=== PATIENT | female | born 1990 | race American Indian/Alaskan Native ===

== ENCOUNTER 2018-08-05 18:29 | Observation (INO) | payer MEDICAID, OTHER ==
--- NOTE | 2018-08-05 16:27 | EDM.PDOC ---
"ED HPI GENERAL MEDICAL PROBLEM - General Chief Complaint: Abdominal Pain Stated Complaint: ABDOMINAL PAIN,JAUNDICE Time Seen by Provider: 08/05/18 16:15 Source of Information: Reports: Patient History Limitations: Reports: No Limitations - History of Present Illness INITIAL COMMENTS - FREE TEXT/NARRATIVE: This 28 yo female patient was sent to the ED from the [facility] via [facility] due to nausea/vomiting (since Thursday), increased upper abdominal pain and jaundice (since yesterday). The patient reports she has been taking 10 Tylenol per day for the past year for her right knee pain. The patient also reports she took some Naproxen today. The patient admits to intermittent ETOH use (none in the past week). The patient denies any drug use. The patient states she started to notice her eyes changing color yesterday. The [facility] did lab work and an ultrasound, but was not able to get a Tylenol level or a CT of her abdomen. The patient reports her last bowel movement was 1 week ago. Onset: Gradual Duration: Day(s):, Constant, Getting Worse Location: Reports: Abdomen Quality: Reports: Ache, Dull Severity: Moderate Improves with: Reports: None Worsens with: Reports: None Context: Reports: Other Associated Symptoms: Reports: Other Treatments UNDER SHERIFF: Reports: Acetaminophen, IV/IO, NSAIDS Left Knee Pain Score (Numeric/FACES): 8 - Related Data Allergies Allergy/AdvReac Type Severity Reaction Status Date / Time No Known Allergies Allergy Verified 08/05/18 15:50 Home Meds: Home Meds Acetaminophen [Tylenol Extra Strength] 1,000 mg PO Q4HR 08/05/18 [History] Past Medical History - Past Health History Medical/Surgical History: Denies Medical/Surgical History HEENT History: Reports: None Cardiovascular History: Reports: None Respiratory History: Reports: None Genitourinary History: Reports: None [employer]ANT History: Reports: None Musculoskeletal History: Reports: Other (See Below) Other Musculoskeletal History: chronic knee pain Neurological History: Reports: None Psychiatric History: Reports: Addiction Endocrine/Metabolic History: Reports: None Hematologic History: Reports: None Immunologic History: Reports: None Oncologic (Cancer) History: Reports: None Dermatologic History: Reports: None - Infectious Disease History Infectious Disease History: Reports: Chicken Pox - Past Surgical History Head Surgeries/Procedures: Reports: None GI Surgical History: Reports: Cholecystectomy Musculoskeletal Surgical History: Reports: Other (See Below) Other Musculoskeletal Surgeries/Procedures:: knee surgury Social & Family History - Tobacco Use Smoking Status *Q: Current Every Day Smoker Years of Tobacco use: 10 Packs/Tins Daily: 1 Second Hand Smoke Exposure: No - Caffeine Use Caffeine Use: Reports: Energy Drinks, Soda - Recreational Drug Use Recreational Drug Use: No ED ROS GENERAL - Review of Systems Review Of Systems: ROS reveals no pertinent complaints other than HPI. ED EXAM, GI/ABD - Physical Exam Exam: See Below Exam Limited By: No Limitations General Appearance: Alert, Moderate Distress Eyes: Bilateral: EOMI (Jaundice) Ears: Normal External Exam, Normal Canal, Hearing Grossly Normal, Normal TMs Nose: Normal Inspection, Normal Mucosa, No Blood Throat/Mouth: Normal Inspection, Normal Lips, Normal Teeth, Normal Gums, Normal Oropharynx, Normal Voice, No Airway Compromise Head: Atraumatic, Normocephalic Neck: Normal Inspection, Supple, Non-Tender, Full Range of Motion Respiratory/Chest: No Respiratory Distress Cardiovascular: Normal Peripheral Pulses, Regular Rate, Rhythm, No Edema, No Gallop, No JVD, No Murmur, No Rub GI/Abdominal Exam: Normal Bowel Sounds, Soft, No Organomegaly, No Distention, No Abnormal Bruit, No Mass, Pelvis Stable, Tender (epigastric ) (Female) Exam: Deferred Rectal (Female) Exam: Deferred Back Exam: Normal Inspection, Full Range of Motion, NT Extremities: Normal Inspection, Normal Range of Motion, Non-Tender, Normal Capillary Refill, No Pedal Edema Neurological: Alert, Oriented, CN II-XII Intact, Normal Cognition, Normal Gait, Normal Reflexes, No Motor/Sensory Deficits Psychiatric: Normal Affect, Normal Mood Skin Exam: Warm, Dry, Intact, No Rash, Jaundice Lymphatic: No Adenopathy Course - Vital Signs Last Recorded V/S: Last Vital Signs Temp 37.1 C 08/05/18 15:56 Pulse 60 08/05/18 15:56 Resp 16 08/05/18 15:56 BP 108/61 08/05/18 15:56 Pulse Ox 99 08/05/18 15:56 - Orders/Labs/Meds Orders: Active Orders 24 hr Category Date Time Status INR,PT,PROTHROMBIN TIME [COAG] Stat Lab 08/05/18 18:21 Ordered Labs: Laboratory Tests 08/05/18 08/05/18 08/05/18 Range/Units 16:24 16:24 16:24 WBC (5.0-10.0) 10^3/uL RBC (4.2-5.4) 10^6/uL Hgb (12.0-16.0) g/dL Hct (37.0-47.0) % MCV (80-100) fL MCH (27.0-34.0) pg MCHC (33.0-35.0) g/dL Plt Count (150-450) 10^3/uL Neut % (Auto) (42.2-75.2) % Lymph % (Auto) (20.5-50.1) % [place] % (Auto) (2-8) % Eos % (Auto) (1.0-3.0) % Baso % (Auto) (0.0-1.0) % Sodium (135-145) mmol/L Potassium (3.6-5.0) mmol/L Chloride (101-111) mmol/L Carbon Dioxide (21.0-31.0) mmol/L Anion Gap BUN (7-18) mg/dL Creatinine (0.6-1.3) mg/dL Est Cr Clr Drug Dosing mL/min Estimated GFR (MDRD) BUN/Creatinine Ratio Glucose (74-105) mg/dL Calcium (8.4-10.2) mg/dl Total Bilirubin (0.2-1.0) mg/dL AST (10-42) IU/L ALT (10-60) IU/L Alkaline Phosphatase (42-121) IU/L Ammonia (11-35) umol/L Total Protein (6.7-8.2) g/dl Albumin (3.2-5.5) g/dl Globulin Albumin/Globulin Ratio Amylase (28-100) U/L Lipase (22-51) U/L Urine Color Yellow (YELLOW) Urine Appearance Clear (CLEAR) Urine pH 6.5 (5.0-9.0) Ur Specific [place] 1.010 (1.005-1.030) Urine Protein Negative (NEGATIVE) Urine Glucose (UA) Negative (NEGATIVE) Urine Ketones Negative (NEGATIVE) Urine Occult Blood Negative (NEGATIVE) Urine Nitrite Negative (NEGATIVE) Urine Bilirubin Small H (NEGATIVE) Urine Urobilinogen 0.2 (0.2-1.0) mg/dL Ur Leukocyte Esterase Negative (NEGATIVE) Urine HCG, Qual Negative Urine Opiates Screen Negative (NEGATIVE) Ur Oxycodone Screen Negative (NEGATIVE) Urine Methadone Screen Negative (NEGATIVE) Acetaminophen ug/mL Ur Barbiturates Screen Negative (NEGATIVE) U Tricyclic Antidepress Negative (NEGATIVE) Ur Phencyclidine Scrn Negative (NEGATIVE) Ur Amphetamine Screen Negative (NEGATIVE) U Methamphetamines Scrn Negative (NEGATIVE) Urine MDMA Screen Negative (NEGATIVE) U Benzodiazepines Scrn Negative (NEGATIVE) Urine Cocaine Screen Negative (NEGATIVE) U Marijuana (THC) Screen Positive H (NEGATIVE) Ethyl Alcohol mg/dL 08/05/18 08/05/18 08/05/18 Range/Units 16:30 16:30 16:30 WBC 6.2 (5.0-10.0) 10^3/uL RBC 4.80 (4.2-5.4) 10^6/uL Hgb 14.6 (12.0-16.0) g/dL Hct 43.7 (37.0-47.0) % MCV 91.0 (80-100) fL MCH 30.4 (27.0-34.0) pg MCHC 33.4 (33.0-35.0) g/dL Plt Count 258 (150-450) 10^3/uL Neut % (Auto) 58.0 (42.2-75.2) % Lymph % (Auto) 25.4 (20.5-50.1) % [place] % (Auto) 11.4 H (2-8) % Eos % (Auto) 4.7 H (1.0-3.0) % Baso % (Auto) 0.5 (0.0-1.0) % Sodium (135-145) mmol/L Potassium (3.6-5.0) mmol/L Chloride (101-111) mmol/L Carbon Dioxide (21.0-31.0) mmol/L Anion Gap BUN (7-18) mg/dL Creatinine (0.6-1.3) mg/dL Est Cr Clr Drug Dosing mL/min Estimated GFR (MDRD) BUN/Creatinine Ratio Glucose (74-105) mg/dL Calcium (8.4-10.2) mg/dl Total Bilirubin (0.2-1.0) mg/dL AST (10-42) IU/L ALT (10-60) IU/L Alkaline Phosphatase (42-121) IU/L Ammonia 20 (11-35) umol/L Total Protein (6.7-8.2) g/dl Albumin (3.2-5.5) g/dl Globulin Albumin/Globulin Ratio Amylase 34 (28-100) U/L Lipase 36 (22-51) U/L Urine Color (YELLOW) Urine Appearance (CLEAR) Urine pH (5.0-9.0) Ur Specific [place] (1.005-1.030) Urine Protein (NEGATIVE) Urine Glucose (UA) (NEGATIVE) Urine Ketones (NEGATIVE) Urine Occult Blood (NEGATIVE) Urine Nitrite (NEGATIVE) Urine Bilirubin (NEGATIVE) Urine Urobilinogen (0.2-1.0) mg/dL Ur Leukocyte Esterase (NEGATIVE) Urine HCG, Qual Urine Opiates Screen (NEGATIVE) Ur Oxycodone Screen (NEGATIVE) Urine Methadone Screen (NEGATIVE) Acetaminophen < 10 ug/mL Ur Barbiturates Screen (NEGATIVE) U Tricyclic Antidepress (NEGATIVE) Ur Phencyclidine Scrn (NEGATIVE) Ur Amphetamine Screen (NEGATIVE) U Methamphetamines Scrn (NEGATIVE) Urine MDMA Screen (NEGATIVE) U Benzodiazepines Scrn (NEGATIVE) Urine Cocaine Screen (NEGATIVE) U Marijuana (THC) Screen (NEGATIVE) Ethyl Alcohol < 5 mg/dL 08/05/18 Range/Units 16:30 WBC (5.0-10.0) 10^3/uL RBC (4.2-5.4) 10^6/uL Hgb (12.0-16.0) g/dL Hct (37.0-47.0) % MCV (80-100) fL MCH (27.0-34.0) pg MCHC (33.0-35.0) g/dL Plt Count (150-450) 10^3/uL Neut % (Auto) (42.2-75.2) % Lymph % (Auto) (20.5-50.1) % [place] % (Auto) (2-8) % Eos % (Auto) (1.0-3.0) % Baso % (Auto) (0.0-1.0) % Sodium 139 (135-145) mmol/L Potassium 4.4 (3.6-5.0) mmol/L Chloride 106 (101-111) mmol/L Carbon Dioxide 25.0 (21.0-31.0) mmol/L Anion Gap 12.4 BUN 5 L (7-18) mg/dL Creatinine 0.4 L (0.6-1.3) mg/dL Est Cr Clr Drug Dosing 188.42 mL/min Estimated GFR (MDRD) > 60 BUN/Creatinine Ratio 12.50 Glucose 118 H (74-105) mg/dL Calcium 8.5 (8.4-10.2) mg/dl Total Bilirubin 9.4 H (0.2-1.0) mg/dL AST 1398 H (10-42) IU/L ALT 2563 H (10-60) IU/L Alkaline Phosphatase 202 H (42-121) IU/L Ammonia (11-35) umol/L Total Protein 6.9 (6.7-8.2) g/dl Albumin 3.7 (3.2-5.5) g/dl Globulin 3.2 Albumin/Globulin Ratio 1.16 Amylase (28-100) U/L Lipase (22-51) U/L Urine Color (YELLOW) Urine Appearance (CLEAR) Urine pH (5.0-9.0) Ur Specific [place] (1.005-1.030) Urine Protein (NEGATIVE) Urine Glucose (UA) (NEGATIVE) Urine Ketones (NEGATIVE) Urine Occult Blood (NEGATIVE) Urine Nitrite (NEGATIVE) Urine Bilirubin (NEGATIVE) Urine Urobilinogen (0.2-1.0) mg/dL Ur Leukocyte Esterase (NEGATIVE) Urine HCG, Qual Urine Opiates Screen (NEGATIVE) Ur Oxycodone Screen (NEGATIVE) Urine Methadone Screen (NEGATIVE) Acetaminophen ug/mL Ur Barbiturates Screen (NEGATIVE) U Tricyclic Antidepress (NEGATIVE) Ur Phencyclidine Scrn (NEGATIVE) Ur Amphetamine Screen (NEGATIVE) U Methamphetamines Scrn (NEGATIVE) Urine MDMA Screen (NEGATIVE) U Benzodiazepines Scrn (NEGATIVE) Urine Cocaine Screen (NEGATIVE) U Marijuana (THC) Screen (NEGATIVE) Ethyl Alcohol mg/dL Meds: Medications Discontinued Medications Generic Name Dose Route Start Last Admin Trade Name Freq PRN Reason Stop Dose Admin Iopamidol 75 ml 08/05/18 17:00 08/05/18 17:06 Isovue-300 (61%) IVPUSH 08/05/18 17:01 75 ml ONETIME ONE Administration - Radiology Interpretation Free Text/Narrative:: EXAM: CT Abdomen and Pelvis With Contrast EXAM DATE/TIME: 08/05/2018 5:18 PM CLINICAL HISTORY: 28 years old, female; Signs and symptoms; Other: Upper abd pain, jaundice, no bm 1 week, vomiting 4 days TECHNIQUE: Axial computed tomography images of the abdomen and pelvis with intravenous contrast. All CT scans at this facility use at least one of these dose optimization techniques: automated exposure control; mA and/or kV adjustment per patient size (includes targeted exams where dose is matched to clinical indication); or iterative reconstruction. Coronal and sagittal reformatted images were created and reviewed. CONTRAST: 75 ml of [id number] administered intravenously. COMPARISON: No relevant prior studies available. FINDINGS: Lower thorax: No acute findings. ABDOMEN: Liver: Normal. No mass. Gallbladder and bile ducts: Gallbladder is surgically absent Pancreas: Normal. No ductal dilation. JOE HERNANDEZ | Final Radiology Report CONFIDENTIALITY STATEMENT This report is intended only for use by the referring physician, and only in accordance with law. If you received this in error, call [phone]. Page 2 of 2 Spleen: Normal. No splenomegaly. Adrenals: Normal. No mass. Kidneys and ureters: Normal. No hydronephrosis. Stomach and bowel: Normal. No obstruction. No mucosal thickening. Appendix: No evidence of appendicitis. PELVIS: Bladder: Unremarkable as visualized. Reproductive: There is 2 cm left adnexal hemorrhagic cyst. ABDOMEN and PELVIS: Intraperitoneal space: Normal. No free air. No significant fluid collection. Bones/joints: No acute fracture. No dislocation. Soft tissues: Unremarkable. Vasculature: Normal. No abdominal aortic aneurysm. Lymph nodes: Normal. No enlarged lymph nodes. IMPRESSION: No acute process Thank you for allowing us to participate in the care of your patient. Dictated and Authenticated by: Андрей Nguyen MD 08/05/2018 5:52 PM Central Time ([place] & [place]) Departure - Departure Time of Disposition: 18:26 Disposition: Admitted As Inpatient 66 Condition: Fair Clinical Impression: Elevated liver function tests, Jaundice Nausea & vomiting Qualifiers: Vomiting type: unspecified Vomiting Intractability: non-intractable Qualified Code(s): R11.2 - Nausea with vomiting, unspecified Abdominal pain Qualifiers: Abdominal location: upper abdomen, unspecified Qualified Code(s): R10.10 - Upper abdominal pain, unspecified - Discharge Information *PRESCRIPTION DRUG MONITORING PROGRAM REVIEWED*: Not Applicable *COPY OF PRESCRIPTION DRUG MONITORING REPORT IN PATIENT NELL: Not Applicable Care Plan Goals: Discussed the patient's history, lab, ultrasound and CT results with Dr. Ho. Dr. Ho accepted the patient for continued evaluation and further management as an inpatient at [facility] in [place]. - My Orders Last 24 Hours: My Active Orders 08/05/18 18:21 INR,PT,PROTHROMBIN TIME [COAG] Stat - Assessment/Plan Last 24 Hours: My Active Orders 08/05/18 18:21 INR,PT,PROTHROMBIN TIME [COAG] Stat"
[2018-08-05 16:56] LABS: ACETAMINOPHEN < 10 ug/mL
[2018-08-05 17:01] LABS: ANION GAP 12.4; CHLORIDE,CL 106 mmol/L (101-111); SODIUM,NA 139 mmol/L (135-145)
[~2018-08-05 18:29] MED LIST: Iopamidol 612 MG/ML 75 ML Bottle IVPUSH ONE
[2018-08-05] MEDS ORDERED: Ondansetron 4 MG/2 ML SDV IVPUSH PRN (19:27)
[2018-08-05] MEDS ORDERED: Zolpidem 5 MG Tab PO PRN (19:27)
[2018-08-05] MEDS ORDERED: Ibuprofen 400 MG Tab PO PRN (19:27)
[2018-08-05] MEDS ORDERED: Sodium Chloride 0.9% 10 ML Syringe FLUSH PRN (19:27)
[2018-08-05] MEDS: NS + KCl 20mEq/L 1,000 ML IV SCH (19:44)
--- NOTE | 2018-08-05 19:56 | PCM.HP ---
H&P History of Present Illness - General Date of Service: 08/05/18 Admit Problem/Dx: Admission Diagnosis/Problem Admission Diagnosis/Problem Liver function tests abnormal Source of Information: Patient - History of Present Illness Initial Comments - Free Text/Narative: 28-year-old lady with a history of no chronic medical problems. She is smoking 1 pack a day Occasional alcohol use She had injury to her left knee and surgery in 2017. The patient continued to have left knee pain and has been taking Tylenol extra strength 2 tablets about every 4 hours She estimates she has been usually taking about 10 pills in a day, 4 months The patient developed nausea, vomiting 3 days prior to this admission. She stopped taking Tylenol 3 days prior to this admission The day prior to the admission she noticed yellowish discoloration of the skin She went to the clinic, she was noted to have icterus, elevated bilirubin, abnormal liver enzymes. She has had mid abdominal, epigastric pain. This has been on and off in the past few days. Currently has not much pain. She did not take further pain medication because she was nauseous. She denies using IV drugs. Left Knee Pain Score (Numeric/FACES): 8 - Related Data Allergies/Adverse Reactions: Allergies Allergy/AdvReac Type Severity Reaction Status Date / Time No Known Allergies Allergy Verified 08/05/18 15:50 Home Medications: Home Meds Acetaminophen [Tylenol Extra Strength] 1,000 mg PO Q4HR 08/05/18 [History] Past Medical History - Past Health History Medical/Surgical History: Denies Medical/Surgical History HEENT History: Reports: None Cardiovascular History: Reports: None Respiratory History: Reports: None Genitourinary History: Reports: None [employer] History: Reports: None Musculoskeletal History: Reports: Other (See Below) Other Musculoskeletal History: chronic knee pain Neurological History: Reports: None Psychiatric History: Reports: Addiction Endocrine/Metabolic History: Reports: None Hematologic History: Reports: None Immunologic History: Reports: None Oncologic (Cancer) History: Reports: None Dermatologic History: Reports: None - Infectious Disease History Infectious Disease History: Reports: Chicken Pox - Past Surgical History Head Surgeries/Procedures: Reports: None GI Surgical History: Reports: Cholecystectomy Musculoskeletal Surgical History: Reports: Other (See Below) Other Musculoskeletal Surgeries/Procedures:: knee surgury Social & Family History - Tobacco Use Smoking Status *Q: Current Every Day Smoker Years of Tobacco use: 10 Packs/Tins Daily: 1 Second Hand Smoke Exposure: No - Caffeine Use Caffeine Use: Reports: Energy Drinks, Soda - Recreational Drug Use Recreational Drug Use: No H&P Review of Systems - Review of Systems: Review Of Systems: See Below General: Denies: Fever Pulmonary: Denies: Shortness of Breath Cardiovascular: Denies: Chest Pain Gastrointestinal: Reports: Abdominal Pain, Nausea, Vomiting Genitourinary: Denies: Dysuria Psychiatric: Denies: Confusion Neurological: Denies: Tremors Exam - Exam Exam: See Below - Vital Signs Vital Signs: Last Vital Signs Temp 36.6 C 08/05/18 19:27 Pulse 56 L 08/05/18 19:27 Resp 16 08/05/18 19:27 BP 99/50 L 08/05/18 19:27 Pulse Ox 99 08/05/18 19:27 Weight: 76.657 kg - Exam General: Alert, Oriented HEENT: Other (Icteric sclera) Neck: Supple Lungs: Clear to Auscultation, Normal Respiratory Effort Cardiovascular: Regular Rate, Regular Rhythm, Normal S1 GI/Abdominal Exam: Normal Bowel Sounds, Soft, Non-Tender. No: Hepatomegaly Extremities: No Pedal Edema Skin: Other (Icteric) Neurological: Other (No tremor) Neuro Extensive - Mental Status: Alert, Oriented x3, Normal Mood/Affect - Patient Data Lab Results Last 24 hrs: Laboratory Results - last 24 hr 08/05/18 08/05/18 08/05/18 Range/Units 16:24 16:24 16:24 WBC (5.0-10.0) 10^3/uL RBC (4.2-5.4) 10^6/uL Hgb (12.0-16.0) g/dL Hct (37.0-47.0) % MCV (80-100) fL MCH (27.0-34.0) pg MCHC (33.0-35.0) g/dL Plt Count (150-450) 10^3/uL Neut % (Auto) (42.2-75.2) % Lymph % (Auto) (20.5-50.1) % Frederick % (Auto) (2-8) % Eos % (Auto) (1.0-3.0) % Baso % (Auto) (0.0-1.0) % PT (9.0-12.0) SEC INR (0.9-1.2) Sodium (135-145) mmol/L Potassium (3.6-5.0) mmol/L Chloride (101-111) mmol/L Carbon Dioxide (21.0-31.0) mmol/L Anion Gap BUN (7-18) mg/dL Creatinine (0.6-1.3) mg/dL Est Cr Clr Drug Dosing mL/min Estimated GFR (MDRD) BUN/Creatinine Ratio Glucose (74-105) mg/dL Calcium (8.4-10.2) mg/dl Total Bilirubin (0.2-1.0) mg/dL AST (10-42) IU/L ALT (10-60) IU/L Alkaline Phosphatase (42-121) IU/L Ammonia (11-35) umol/L Total Protein (6.7-8.2) g/dl Albumin (3.2-5.5) g/dl Globulin Albumin/Globulin Ratio Amylase (28-100) U/L Lipase (22-51) U/L Urine Color Yellow (YELLOW) Urine Appearance Clear (CLEAR) Urine pH 6.5 (5.0-9.0) Ur Specific [place] 1.010 (1.005-1.030) Urine Protein Negative (NEGATIVE) Urine Glucose (UA) Negative (NEGATIVE) Urine Ketones Negative (NEGATIVE) Urine Occult Blood Negative (NEGATIVE) Urine Nitrite Negative (NEGATIVE) Urine Bilirubin Small H (NEGATIVE) Urine Urobilinogen 0.2 (0.2-1.0) mg/dL Ur Leukocyte Esterase Negative (NEGATIVE) Urine HCG, Qual Negative Urine Opiates Screen Negative (NEGATIVE) Ur Oxycodone Screen Negative (NEGATIVE) Urine Methadone Screen Negative (NEGATIVE) Acetaminophen ug/mL Ur Barbiturates Screen Negative (NEGATIVE) U Tricyclic Antidepress Negative (NEGATIVE) Ur Phencyclidine Scrn Negative (NEGATIVE) Ur Amphetamine Screen Negative (NEGATIVE) U Methamphetamines Scrn Negative (NEGATIVE) Urine MDMA Screen Negative (NEGATIVE) U Benzodiazepines Scrn Negative (NEGATIVE) Urine Cocaine Screen Negative (NEGATIVE) U Marijuana (THC) Screen Positive H (NEGATIVE) Ethyl Alcohol mg/dL 08/05/18 08/05/18 08/05/18 Range/Units 16:30 16:30 16:30 WBC 6.2 (5.0-10.0) 10^3/uL RBC 4.80 (4.2-5.4) 10^6/uL Hgb 14.6 (12.0-16.0) g/dL Hct 43.7 (37.0-47.0) % MCV 91.0 (80-100) fL MCH 30.4 (27.0-34.0) pg MCHC 33.4 (33.0-35.0) g/dL Plt Count 258 (150-450) 10^3/uL Neut % (Auto) 58.0 (42.2-75.2) % Lymph % (Auto) 25.4 (20.5-50.1) % Frederick % (Auto) 11.4 H (2-8) % Eos % (Auto) 4.7 H (1.0-3.0) % Baso % (Auto) 0.5 (0.0-1.0) % PT (9.0-12.0) SEC INR (0.9-1.2) Sodium (135-145) mmol/L Potassium (3.6-5.0) mmol/L Chloride (101-111) mmol/L Carbon Dioxide (21.0-31.0) mmol/L Anion Gap BUN (7-18) mg/dL Creatinine (0.6-1.3) mg/dL Est Cr Clr Drug Dosing mL/min Estimated GFR (MDRD) BUN/Creatinine Ratio Glucose (74-105) mg/dL Calcium (8.4-10.2) mg/dl Total Bilirubin (0.2-1.0) mg/dL AST (10-42) IU/L ALT (10-60) IU/L Alkaline Phosphatase (42-121) IU/L Ammonia 20 (11-35) umol/L Total Protein (6.7-8.2) g/dl Albumin (3.2-5.5) g/dl Globulin Albumin/Globulin Ratio Amylase 34 (28-100) U/L Lipase 36 (22-51) U/L Urine Color (YELLOW) Urine Appearance (CLEAR) Urine pH (5.0-9.0) Ur Specific [place] (1.005-1.030) Urine Protein (NEGATIVE) Urine Glucose (UA) (NEGATIVE) Urine Ketones (NEGATIVE) Urine Occult Blood (NEGATIVE) Urine Nitrite (NEGATIVE) Urine Bilirubin (NEGATIVE) Urine Urobilinogen (0.2-1.0) mg/dL Ur Leukocyte Esterase (NEGATIVE) Urine HCG, Qual Urine Opiates Screen (NEGATIVE) Ur Oxycodone Screen (NEGATIVE) Urine Methadone Screen (NEGATIVE) Acetaminophen < 10 ug/mL Ur Barbiturates Screen (NEGATIVE) U Tricyclic Antidepress (NEGATIVE) Ur Phencyclidine Scrn (NEGATIVE) Ur Amphetamine Screen (NEGATIVE) U Methamphetamines Scrn (NEGATIVE) Urine MDMA Screen (NEGATIVE) U Benzodiazepines Scrn (NEGATIVE) Urine Cocaine Screen (NEGATIVE) U Marijuana (THC) Screen (NEGATIVE) Ethyl Alcohol < 5 mg/dL 08/05/18 08/05/18 Range/Units 16:30 16:30 WBC (5.0-10.0) 10^3/uL RBC (4.2-5.4) 10^6/uL Hgb (12.0-16.0) g/dL Hct (37.0-47.0) % MCV (80-100) fL MCH (27.0-34.0) pg MCHC (33.0-35.0) g/dL Plt Count (150-450) 10^3/uL Neut % (Auto) (42.2-75.2) % Lymph % (Auto) (20.5-50.1) % Frederick % (Auto) (2-8) % Eos % (Auto) (1.0-3.0) % Baso % (Auto) (0.0-1.0) % PT 11.0 (9.0-12.0) SEC INR 1.1 (0.9-1.2) Sodium 139 (135-145) mmol/L Potassium 4.4 (3.6-5.0) mmol/L Chloride 106 (101-111) mmol/L Carbon Dioxide 25.0 (21.0-31.0) mmol/L Anion Gap 12.4 BUN 5 L (7-18) mg/dL Creatinine 0.4 L (0.6-1.3) mg/dL Est Cr Clr Drug Dosing 188.42 mL/min Estimated GFR (MDRD) > 60 BUN/Creatinine Ratio 12.50 Glucose 118 H (74-105) mg/dL Calcium 8.5 (8.4-10.2) mg/dl Total Bilirubin 9.4 H (0.2-1.0) mg/dL AST 1398 H (10-42) IU/L ALT 2563 H (10-60) IU/L Alkaline Phosphatase 202 H (42-121) IU/L Ammonia (11-35) umol/L Total Protein 6.9 (6.7-8.2) g/dl Albumin 3.7 (3.2-5.5) g/dl Globulin 3.2 Albumin/Globulin Ratio 1.16 Amylase (28-100) U/L Lipase (22-51) U/L Urine Color (YELLOW) Urine Appearance (CLEAR) Urine pH (5.0-9.0) Ur Specific [place] (1.005-1.030) Urine Protein (NEGATIVE) Urine Glucose (UA) (NEGATIVE) Urine Ketones (NEGATIVE) Urine Occult Blood (NEGATIVE) Urine Nitrite (NEGATIVE) Urine Bilirubin (NEGATIVE) Urine Urobilinogen (0.2-1.0) mg/dL Ur Leukocyte Esterase (NEGATIVE) Urine HCG, Qual Urine Opiates Screen (NEGATIVE) Ur Oxycodone Screen (NEGATIVE) Urine Methadone Screen (NEGATIVE) Acetaminophen ug/mL Ur Barbiturates Screen (NEGATIVE) U Tricyclic Antidepress (NEGATIVE) Ur Phencyclidine Scrn (NEGATIVE) Ur Amphetamine Screen (NEGATIVE) U Methamphetamines Scrn (NEGATIVE) Urine MDMA Screen (NEGATIVE) U Benzodiazepines Scrn (NEGATIVE) Urine Cocaine Screen (NEGATIVE) U Marijuana (THC) Screen (NEGATIVE) Ethyl Alcohol mg/dL Result Diagrams: 08/05/18 16:30 08/05/18 16:30 - Problem List (1) Abdominal pain SNOMED Code(s): 79343249 ICD Code: R10.9 - UNSPECIFIED ABDOMINAL PAIN Status: Acute Current Visit : No Qualifiers: Abdominal location: upper abdomen, unspecified Qualified Code(s): R10.10 - Upper abdominal pain, unspecified (2) Elevated liver function tests SNOMED Code(s): 028766336, 848136329 ICD Code: R94.5 - ABNORMAL RESULTS OF LIVER FUNCTION STUDIES Status: Acute Current Visit: No (3) Jaundice SNOMED Code(s): 06295270 ICD Code: R17 - UNSPECIFIED JAUNDICE Status: Acute Current Visit: No (4) Nausea & vomiting SNOMED Code(s): 67832818 ICD Code: R11.2 - NAUSEA WITH VOMITING, UNSPECIFIED Status: Acute Current Visit: No Qualifiers: Vomiting type: unspecified Vomiting Intractability: non-intractable Qualified Code(s): R11.2 - Nausea with vomiting, unspecified Problem List Initiated/Reviewed/Updated: Yes Orders Last 24hrs: Active Orders 24 hr Category Date Time Status Patient Status [ADT] Routine ADT 08/05/18 19:27 Active Ambulate [RC] PER UNIT ROUTINE Care 08/05/18 19:29 Active Antiembolic Devices [RC] PER UNIT ROUTINE Care 08/05/18 19:30 Active Oxygen Therapy [RC] PRN Care 08/05/18 19:27 Active Peripheral IV Care [RC] . DIRECTED Care 08/05/18 19:30 Active Up ad Alanna [RC] ASDIRECTED Care 08/05/18 19:27 Active VTE/DVT Education [RC] PER UNIT ROUTINE Care 08/05/18 19:27 Active Vital Signs [RC] Q4H Care 08/05/18 19:27 Active Regular Diet [DIET] Diet 08/05/18 Breakfast Active BASIC METABOLIC PANEL,BMP [CHEM] AM Lab 08/06/18 05:15 Ordered CBC WITH AUTO DIFF [HEME] AM Lab 08/06/18 05:15 Ordered HEPATIC FUNCTION PANEL,HFP [CHEM] AM Lab 08/06/18 05:11 Ordered HEPATITIS PANEL (4) [REF] Routine Lab 08/06/18 05:00 Ordered INR,PT,PROTHROMBIN TIME [COAG] AM Lab 08/06/18 05:15 Ordered Ibuprofen [Motrin] Med 08/05/18 19:27 Active 400 mg PO Q6H PRN Lactulose [Cephulac] Med 08/05/18 21:00 Ordered 20 gm PO BID NS + KCl 20mEq/L [Normal Saline with 20 mEq KCl] 1,000 Med 08/05/18 19:30 Active ml IV ASDIRECTED Ondansetron [Zofran ODT] Med 08/05/18 19:27 Active 4 mg PO Q6H PRN Ondansetron [Zofran] Med 08/05/18 19:27 Active 4 mg IVPUSH Q6H PRN Pantoprazole [ProTONIX] Med 08/05/18 21:00 Active 40 mg PO ACBRK Sodium Chloride 0.9% [Saline Flush] Med 08/05/18 19:27 Active 10 ml FLUSH ASDIRECTED PRN Zolpidem [Ambien] Med 08/05/18 19:27 Active 5 mg PO BEDTIME PRN Peripheral IV Insertion Adult [OM.PC] Routine Oth 08/05/18 19:27 Ordered Sequential Compression Device [OM.PC] Per Unit Routine Oth 08/05/18 19:29 Ordered Resuscitation Status Routine Resus Stat 08/05/18 19:27 Ordered Medication Orders Potassium Chloride/Sodium Chloride (Normal Saline With 20 Meq Kcl) 1,000 mls @ 100 mls/hr IV ASDIRECTED ISELA Last Admin: 08/05/18 19:44 Dose: 100 mls/hr Ibuprofen (Motrin) 400 mg PO Q6H PRN PRN Reason: Pain Lactulose (Cephulac) 20 gm PO BID ISELA Ondansetron HCl (Zofran Odt) 4 mg PO Q6H PRN PRN Reason: nausea, able to take PO Ondansetron HCl (Zofran) 4 mg IVPUSH Q6H PRN PRN Reason: Nausea/Vomiting Pantoprazole Sodium (Protonix) 40 mg PO ACBRK ISELA Sodium Chloride (Saline Flush) 10 ml FLUSH ASDIRECTED PRN PRN Reason: Keep Vein Open Zolpidem Tartrate (Ambien) 5 mg PO BEDTIME PRN PRN Reason: Sleep Assessment/Plan Comment:: 28-year-old lady presented with icterus. She was noted to have elevated liver enzymes, significantly elevated bilirubin, AST, AST She has a history of cholecystectomy She has a history of 5 using about 10 extra strength Tylenol per day for months Acute hepatitis This is likely secondary to overuse of acetaminophen Last acetaminophen use was 3 days prior to admission per patient, acetaminophen level is negative Per verbal report the right upper quadrant ultrasound that was done at the local clinic did not show common bile duct stone Viral hepatitis is possible, serology will be sent out The patient has minimal alcohol use Nausea, vomiting might relate to hepatitis Will treat symptomatically IV hydration Discussed avoidance of acetaminophen Discussed the need for outpatient follow-up for liver enzyme monitoring no apparent fulminant liver failure currently
[2018-08-05] MEDS: Pantoprazole 40 MG Tab.CR PO SCH (20:57)
[2018-08-05] MEDS: Lactulose Soln 10 GM/15 ML 30 ML UD Cup PO SCH (20:57)
[2018-08-05] MEDS: Ondansetron 4 MG Tab.DIS PO PRN (23:27)
[2018-08-06] MEDS: NS + KCl 20mEq/L 1,000 ML IV SCH (05:35)
[2018-08-06] MEDS: Pantoprazole 40 MG Tab.CR PO SCH (05:35)
[2018-08-06] MEDS: Ondansetron 4 MG Tab.DIS PO PRN (05:37)
[2018-08-06 07:10] LABS: ANION GAP 14.8; CHLORIDE,CL 104 mmol/L (101-111); SODIUM,NA 137 mmol/L (135-145)
--- NOTE | 2018-08-06 10:17 | PCM.DCSUM1 ---
Discharge Summary - Hospital Course Free Text/Narrative:: 28-year-old lady presented with icterus. She was noted to have elevated liver enzymes, significantly elevated bilirubin, AST, AST She has a history of cholecystectomy She has a history of using about 10 extra strength Tylenol per day for months Acute hepatitis This is likely secondary to overuse of acetaminophen Last acetaminophen use was 3 days prior to admission per patient, acetaminophen level is negative Per verbal report the right upper quadrant ultrasound that was done at the local clinic did not show common bile duct stone CT performe here showed no CBD dilatatation Viral hepatitis is possible, serology has been sent out The patient has minimal alcohol use overnight LFTs have improved they will likely continue to improve discussed improtance of f/up with PMD clinic in a few days Nausea, vomiting might relate to hepatitis Treated symptomatically by discharge able to drink well, eat some Discussed avoidance of acetaminophen Discussed the need for outpatient follow-up for liver enzyme monitoring no apparent fulminant liver failure currently for left knee pain suggested knee brace, f/up with ortho cautious use of motrin Diagnosis: Stroke: No - Discharge Data Discharge Date: 08/06/18 Discharge Disposition: Home, Self-Care 01 Condition: Good - Discharge Diagnosis/Problem(s) (1) Abdominal pain SNOMED Code(s): 04450341 ICD Code: R10.9 - UNSPECIFIED ABDOMINAL PAIN Status: Acute Current Visit : No Qualifiers: Abdominal location: upper abdomen, unspecified Qualified Code(s): R10.10 - Upper abdominal pain, unspecified (2) Elevated liver function tests SNOMED Code(s): 140185745, 821885231 ICD Code: R94.5 - ABNORMAL RESULTS OF LIVER FUNCTION STUDIES Status: Acute Current Visit: No (3) Jaundice SNOMED Code(s): 40966332 ICD Code: R17 - UNSPECIFIED JAUNDICE Status: Acute Current Visit: No (4) Nausea & vomiting SNOMED Code(s): 08347681 ICD Code: R11.2 - NAUSEA WITH VOMITING, UNSPECIFIED Status: Acute Current Visit: No Qualifiers: Vomiting type: unspecified Vomiting Intractability: non-intractable Qualified Code(s): R11.2 - Nausea with vomiting, unspecified - Patient Instructions Diet: Usual Diet as Tolerated Activity: As Tolerated - Discharge Plan *PRESCRIPTION DRUG MONITORING PROGRAM REVIEWED*: Not Applicable *COPY OF PRESCRIPTION DRUG MONITORING REPORT IN PATIENT NELL: Not Applicable Prescriptions/Med Rec: Ondansetron [Zofran ODT] 4 mg PO Q6H PRN #12 tab.dis PRN Reason: Nausea Home Medications: Home Meds Ondansetron [Zofran ODT] 4 mg PO Q6H PRN #12 tab.dis 08/06/18 [Rx] Oxygen Therapy Mode: Room Air - Discharge Summary/Plan Comment DC Time >30 min.: No - General Info Date of Service: 08/06/18 - Review of Systems General: Denies: Fever, Weakness Pulmonary: Denies: Shortness of Breath Cardiovascular: Denies: Chest Pain Gastrointestinal: Reports: Abdominal Pain (much improved), Nausea (mild). Denies: Vomiting Genitourinary: Denies: Dysuria Neurological: Denies: Confusion - Patient Data Vitals - Most Recent: Last Vital Signs Temp 36.1 C 08/06/18 08:54 Pulse 51 L 08/06/18 08:54 Resp 20 08/06/18 08:54 BP 112/56 L 08/06/18 08:54 Pulse Ox 96 08/06/18 08:54 Weight - Most Recent: 76.657 kg I&O - Last 24 hours: Intake & Output 08/05/18 08/06/18 08/06/18 22:59 06:59 14:59 Intake Total 986 200 Output Total 350 Balance 636 200 Lab Results - Last 24 hrs: Laboratory Results - last 24 hr 08/05/18 08/05/18 08/05/18 Range/Units 16:24 16:24 16:24 WBC (5.0-10.0) 10^3/uL RBC (4.2-5.4) 10^6/uL Hgb (12.0-16.0) g/dL Hct (37.0-47.0) % MCV (80-100) fL MCH (27.0-34.0) pg MCHC (33.0-35.0) g/dL Plt Count (150-450) 10^3/uL Neut % (Auto) (42.2-75.2) % Lymph % (Auto) (20.5-50.1) % Graves % (Auto) (2-8) % Eos % (Auto) (1.0-3.0) % Baso % (Auto) (0.0-1.0) % Add Manual Diff Neutrophils % (Manual) (42-75) % Lymphocytes % (Manual) (20-50) % Monocytes % (Manual) (2-8) % Eosinophils % (Manual) (1-3) % PT (9.0-12.0) SEC INR (0.9-1.2) Sodium (135-145) mmol/L Potassium (3.6-5.0) mmol/L Chloride (101-111) mmol/L Carbon Dioxide (21.0-31.0) mmol/L Anion Gap BUN (7-18) mg/dL Creatinine (0.6-1.3) mg/dL Est Cr Clr Drug Dosing mL/min Estimated GFR (MDRD) BUN/Creatinine Ratio Glucose (74-105) mg/dL Calcium (8.4-10.2) mg/dl Total Bilirubin (0.2-1.0) mg/dL Direct Bilirubin (0.0-0.2) mg/dL Indirect Bilirubin AST (10-42) IU/L ALT (10-60) IU/L Alkaline Phosphatase (42-121) IU/L Ammonia (11-35) umol/L Total Protein (6.7-8.2) g/dl Albumin (3.2-5.5) g/dl Globulin Albumin/Globulin Ratio Amylase (28-100) U/L Lipase (22-51) U/L Urine Color Yellow (YELLOW) Urine Appearance Clear (CLEAR) Urine pH 6.5 (5.0-9.0) Ur Specific [place] 1.010 (1.005-1.030) Urine Protein Negative (NEGATIVE) Urine Glucose (UA) Negative (NEGATIVE) Urine Ketones Negative (NEGATIVE) Urine Occult Blood Negative (NEGATIVE) Urine Nitrite Negative (NEGATIVE) Urine Bilirubin Small H (NEGATIVE) Urine Urobilinogen 0.2 (0.2-1.0) mg/dL Ur Leukocyte Esterase Negative (NEGATIVE) Urine HCG, Qual Negative Urine Opiates Screen Negative (NEGATIVE) Ur Oxycodone Screen Negative (NEGATIVE) Urine Methadone Screen Negative (NEGATIVE) Acetaminophen ug/mL Ur Barbiturates Screen Negative (NEGATIVE) U Tricyclic Antidepress Negative (NEGATIVE) Ur Phencyclidine Scrn Negative (NEGATIVE) Ur Amphetamine Screen Negative (NEGATIVE) U Methamphetamines Scrn Negative (NEGATIVE) Urine MDMA Screen Negative (NEGATIVE) U Benzodiazepines Scrn Negative (NEGATIVE) Urine Cocaine Screen Negative (NEGATIVE) U Marijuana (THC) Screen Positive H (NEGATIVE) Ethyl Alcohol mg/dL 08/05/18 08/05/18 08/05/18 Range/Units 16:30 16:30 16:30 WBC 6.2 (5.0-10.0) 10^3/uL RBC 4.80 (4.2-5.4) 10^6/uL Hgb 14.6 (12.0-16.0) g/dL Hct 43.7 (37.0-47.0) % MCV 91.0 (80-100) fL MCH 30.4 (27.0-34.0) pg MCHC 33.4 (33.0-35.0) g/dL Plt Count 258 (150-450) 10^3/uL Neut % (Auto) 58.0 (42.2-75.2) % Lymph % (Auto) 25.4 (20.5-50.1) % Graves % (Auto) 11.4 H (2-8) % Eos % (Auto) 4.7 H (1.0-3.0) % Baso % (Auto) 0.5 (0.0-1.0) % Add Manual Diff Neutrophils % (Manual) (42-75) % Lymphocytes % (Manual) (20-50) % Monocytes % (Manual) (2-8) % Eosinophils % (Manual) (1-3) % PT (9.0-12.0) SEC INR (0.9-1.2) Sodium (135-145) mmol/L Potassium (3.6-5.0) mmol/L Chloride (101-111) mmol/L Carbon Dioxide (21.0-31.0) mmol/L Anion Gap BUN (7-18) mg/dL Creatinine (0.6-1.3) mg/dL Est Cr Clr Drug Dosing mL/min Estimated GFR (MDRD) BUN/Creatinine Ratio Glucose (74-105) mg/dL Calcium (8.4-10.2) mg/dl Total Bilirubin (0.2-1.0) mg/dL Direct Bilirubin (0.0-0.2) mg/dL Indirect Bilirubin AST (10-42) IU/L ALT (10-60) IU/L Alkaline Phosphatase (42-121) IU/L Ammonia 20 (11-35) umol/L Total Protein (6.7-8.2) g/dl Albumin (3.2-5.5) g/dl Globulin Albumin/Globulin Ratio Amylase 34 (28-100) U/L Lipase 36 (22-51) U/L Urine Color (YELLOW) Urine Appearance (CLEAR) Urine pH (5.0-9.0) Ur Specific [place] (1.005-1.030) Urine Protein (NEGATIVE) Urine Glucose (UA) (NEGATIVE) Urine Ketones (NEGATIVE) Urine Occult Blood (NEGATIVE) Urine Nitrite (NEGATIVE) Urine Bilirubin (NEGATIVE) Urine Urobilinogen (0.2-1.0) mg/dL Ur Leukocyte Esterase (NEGATIVE) Urine HCG, Qual Urine Opiates Screen (NEGATIVE) Ur Oxycodone Screen (NEGATIVE) Urine Methadone Screen (NEGATIVE) Acetaminophen < 10 ug/mL Ur Barbiturates Screen (NEGATIVE) U Tricyclic Antidepress (NEGATIVE) Ur Phencyclidine Scrn (NEGATIVE) Ur Amphetamine Screen (NEGATIVE) U Methamphetamines Scrn (NEGATIVE) Urine MDMA Screen (NEGATIVE) U Benzodiazepines Scrn (NEGATIVE) Urine Cocaine Screen (NEGATIVE) U Marijuana (THC) Screen (NEGATIVE) Ethyl Alcohol < 5 mg/dL 08/05/18 08/05/18 08/06/18 Range/Units 16:30 16:30 06:05 WBC (5.0-10.0) 10^3/uL RBC (4.2-5.4) 10^6/uL Hgb (12.0-16.0) g/dL Hct (37.0-47.0) % MCV (80-100) fL MCH (27.0-34.0) pg MCHC (33.0-35.0) g/dL Plt Count (150-450) 10^3/uL Neut % (Auto) (42.2-75.2) % Lymph % (Auto) (20.5-50.1) % Graves % (Auto) (2-8) % Eos % (Auto) (1.0-3.0) % Baso % (Auto) (0.0-1.0) % Add Manual Diff Neutrophils % (Manual) (42-75) % Lymphocytes % (Manual) (20-50) % Monocytes % (Manual) (2-8) % Eosinophils % (Manual) (1-3) % PT 11.0 (9.0-12.0) SEC INR 1.1 (0.9-1.2) Sodium 139 137 (135-145) mmol/L Potassium 4.4 3.8 (3.6-5.0) mmol/L Chloride 106 104 (101-111) mmol/L Carbon Dioxide 25.0 22.0 (21.0-31.0) mmol/L Anion Gap 12.4 14.8 BUN 5 L 4 L (7-18) mg/dL Creatinine 0.4 L 0.5 L (0.6-1.3) mg/dL Est Cr Clr Drug Dosing 188.42 150.73 mL/min Estimated GFR (MDRD) > 60 > 60 BUN/Creatinine Ratio 12.50 Glucose 118 H 82 (74-105) mg/dL Calcium 8.5 8.2 L (8.4-10.2) mg/dl Total Bilirubin 9.4 H 9.1 H (0.2-1.0) mg/dL Direct Bilirubin 5.3 H (0.0-0.2) mg/dL Indirect Bilirubin 3.8 AST 1398 H 1259 H (10-42) IU/L ALT 2563 H 2178 H (10-60) IU/L Alkaline Phosphatase 202 H 171 H (42-121) IU/L Ammonia (11-35) umol/L Total Protein 6.9 6.0 L (6.7-8.2) g/dl Albumin 3.7 3.3 (3.2-5.5) g/dl Globulin 3.2 2.7 Albumin/Globulin Ratio 1.16 1.22 Amylase (28-100) U/L Lipase (22-51) U/L Urine Color (YELLOW) Urine Appearance (CLEAR) Urine pH (5.0-9.0) Ur Specific [place] (1.005-1.030) Urine Protein (NEGATIVE) Urine Glucose (UA) (NEGATIVE) Urine Ketones (NEGATIVE) Urine Occult Blood (NEGATIVE) Urine Nitrite (NEGATIVE) Urine Bilirubin (NEGATIVE) Urine Urobilinogen (0.2-1.0) mg/dL Ur Leukocyte Esterase (NEGATIVE) Urine HCG, Qual Urine Opiates Screen (NEGATIVE) Ur Oxycodone Screen (NEGATIVE) Urine Methadone Screen (NEGATIVE) Acetaminophen ug/mL Ur Barbiturates Screen (NEGATIVE) U Tricyclic Antidepress (NEGATIVE) Ur Phencyclidine Scrn (NEGATIVE) Ur Amphetamine Screen (NEGATIVE) U Methamphetamines Scrn (NEGATIVE) Urine MDMA Screen (NEGATIVE) U Benzodiazepines Scrn (NEGATIVE) Urine Cocaine Screen (NEGATIVE) U Marijuana (THC) Screen (NEGATIVE) Ethyl Alcohol mg/dL 08/06/18 08/06/18 Range/Units 06:05 06:05 WBC 7.6 (5.0-10.0) 10^3/uL RBC 4.56 (4.2-5.4) 10^6/uL Hgb 14.0 (12.0-16.0) g/dL Hct 41.6 (37.0-47.0) % MCV 91.2 (80-100) fL MCH 30.7 (27.0-34.0) pg MCHC 33.7 (33.0-35.0) g/dL Plt Count 244 (150-450) 10^3/uL Neut % (Auto) 47.7 (42.2-75.2) % Lymph % (Auto) 31.6 (20.5-50.1) % Graves % (Auto) 13.3 H (2-8) % Eos % (Auto) 6.7 H (1.0-3.0) % Baso % (Auto) 0.7 (0.0-1.0) % Add Manual Diff Yes Neutrophils % (Manual) 38 L (42-75) % Lymphocytes % (Manual) 43 (20-50) % Monocytes % (Manual) 11 H (2-8) % Eosinophils % (Manual) 8 H (1-3) % PT 11.5 (9.0-12.0) SEC INR 1.2 (0.9-1.2) Sodium (135-145) mmol/L Potassium (3.6-5.0) mmol/L Chloride (101-111) mmol/L Carbon Dioxide (21.0-31.0) mmol/L Anion Gap BUN (7-18) mg/dL Creatinine (0.6-1.3) mg/dL Est Cr Clr Drug Dosing mL/min Estimated GFR (MDRD) BUN/Creatinine Ratio Glucose (74-105) mg/dL Calcium (8.4-10.2) mg/dl Total Bilirubin (0.2-1.0) mg/dL Direct Bilirubin (0.0-0.2) mg/dL Indirect Bilirubin AST (10-42) IU/L ALT (10-60) IU/L Alkaline Phosphatase (42-121) IU/L Ammonia (11-35) umol/L Total Protein (6.7-8.2) g/dl Albumin (3.2-5.5) g/dl Globulin Albumin/Globulin Ratio Amylase (28-100) U/L Lipase (22-51) U/L Urine Color (YELLOW) Urine Appearance (CLEAR) Urine pH (5.0-9.0) Ur Specific [place] (1.005-1.030) Urine Protein (NEGATIVE) Urine Glucose (UA) (NEGATIVE) Urine Ketones (NEGATIVE) Urine Occult Blood (NEGATIVE) Urine Nitrite (NEGATIVE) Urine Bilirubin (NEGATIVE) Urine Urobilinogen (0.2-1.0) mg/dL Ur Leukocyte Esterase (NEGATIVE) Urine HCG, Qual Urine Opiates Screen (NEGATIVE) Ur Oxycodone Screen (NEGATIVE) Urine Methadone Screen (NEGATIVE) Acetaminophen ug/mL Ur Barbiturates Screen (NEGATIVE) U Tricyclic Antidepress (NEGATIVE) Ur Phencyclidine Scrn (NEGATIVE) Ur Amphetamine Screen (NEGATIVE) U Methamphetamines Scrn (NEGATIVE) Urine MDMA Screen (NEGATIVE) U Benzodiazepines Scrn (NEGATIVE) Urine Cocaine Screen (NEGATIVE) U Marijuana (THC) Screen (NEGATIVE) Ethyl Alcohol mg/dL Med Orders - Current: Current Medications Potassium Chloride/Sodium Chloride (Normal Saline With 20 Meq Kcl) 1,000 mls @ 100 mls/hr IV ASDIRECTED [facility] Last Admin: 08/06/18 05:35 Dose: 100 mls/hr Ibuprofen (Motrin) 400 mg PO Q6H PRN PRN Reason: Pain Lactulose (Cephulac) 20 gm PO BID [facility] Last Admin: 08/05/18 20:57 Dose: 20 gm Ondansetron HCl (Zofran Odt) 4 mg PO Q6H PRN PRN Reason: nausea, able to take PO Last Admin: 08/06/18 05:37 Dose: 4 mg Ondansetron HCl (Zofran) 4 mg IVPUSH Q6H PRN PRN Reason: Nausea/Vomiting Pantoprazole Sodium (Protonix) 40 mg PO ACBRK [facility] Last Admin: 08/06/18 05:35 Dose: 40 mg Sodium Chloride (Saline Flush) 10 ml FLUSH ASDIRECTED PRN PRN Reason: Keep Vein Open Last Admin: 08/05/18 19:47 Dose: 10 ml Zolpidem Tartrate (Ambien) 5 mg PO BEDTIME PRN PRN Reason: Sleep Discontinued Medications Iopamidol (Isovue-300 (61%)) 75 ml IVPUSH ONETIME ONE Stop: 08/05/18 17:01 Last Admin: 08/05/18 17:06 Dose: 75 ml - Exam General: Reports: Alert, Oriented HEENT: Reports: Scleral Icterus Neck: Reports: Supple Lungs: Reports: Clear to Auscultation, Normal Respiratory Effort Cardiovascular: Reports: Regular Rate, Regular Rhythm GI/Abdominal Exam: Non-Tender Extremities: No Pedal Edema. No: Joint Swelling Skin: Reports: Warm, Dry, Other (icterus)
[2018-08-06] MEDS: Lactulose Soln 10 GM/15 ML 30 ML UD Cup PO SCH (10:59)
--- NOTE | 2018-08-10 09:41 | PCM.SN ---
- Free Text/Narrative Note: hepatitis C reult positive Called pt on [phone] - Mom answered - left message for her - to see PMD re virus in the liver called [phone] (number that her mother gave me to call ) - no answer, voicemail not set up
== END 2018-08-06 14:00 | disposition home or self-care (01) ==
LOC: DL.ED 18:29 → UNDOADMOB 18:54 → DL.MS 18:54
PROVIDERS: ADMIT Internal Medicine; ATTEND Internal Medicine
DX: B17.9 Acute viral hepatitis, unspecified (principal); R11.2 Nausea with vomiting, unspecified; F17.210 Nicotine dependence, cigarettes, uncomplicated; Z90.49 Acquired absence of other specified parts of digestive tract
CPT/HCPCS: 36415; 74177; 80048; 80053; 80074; 80076; 80305-QW; 81003; 81025; 82140; 82150; 83690; 85025; 85610; 96360; 96361; 99285; A9270-GY; G0378; G0480; J3480; Q9967

== ENCOUNTER 2019-04-12 02:52 | Inpatient (IN) | payer MEDICAID ==
[2019-04-12] MEDS ORDERED: Lidocaine 1% 30 ML SDV INJECT PRN (03:12)
[2019-04-12] MEDS ORDERED: Misoprostol 400 MCG (4 X 100 MCG TAB) RECTAL PRN (03:12)
[2019-04-12] MEDS ORDERED: Tranexamic Acid 1,000 MG in Sodium Chloride 0.9% 100 ML IV PRN (03:12)
[2019-04-12] MEDS ORDERED: Lactated Ringers 500 ML IV ONE (03:12)
[2019-04-12] MEDS ORDERED: Acetaminophen 325 MG Tab PO PRN (03:12)
[2019-04-12] MEDS ORDERED: fentaNYL 100 MCG/2 ML SDV IVPUSH PRN (03:12)
[2019-04-12] MEDS ORDERED: Ondansetron 4 MG/2 ML SDV IV PRN (03:12)
[2019-04-12] MEDS ORDERED: Carboprost Tromethamine 250 MCG/1 ML Amp IM PRN (03:12)
[2019-04-12] MEDS ORDERED: Sodium Chloride 0.9% 10 ML Syringe FLUSH PRN ×2 (03:12→03:50)
[2019-04-12] MEDS ORDERED: Methylergonovine 0.2 MG/1 ML Amp IM PRN (03:12)
[2019-04-12] MEDS ORDERED: Oxytocin/Normal Saline 30 UNIT/500 ML BAG IV SCH (03:15)
[2019-04-12] MEDS ORDERED: Lactated Ringers 1,000 ML IV SCH (03:15)
[2019-04-12] MEDS: Oxytocin/Normal Saline 30 UNIT/500 ML BAG ONE ×2 (03:45→04:57)
[2019-04-12] MEDS ORDERED: Simethicone 80 MG Tab.Chew PO PRN (03:50)
[2019-04-12] MEDS ORDERED: Benzocaine/Menthol 20%-0.5% Spray 56 GM Canister TOP PRN (03:50)
[2019-04-12] MEDS ORDERED: Zolpidem 5 MG Tab PO PRN (03:50)
[2019-04-12] MEDS ORDERED: Oxytocin 10 Units/1 ML SDV IM PRN (03:50)
[2019-04-12] MEDS: Ibuprofen 800 MG Tab PO PRN ×2 (04:19→19:37)
[2019-04-12] MEDS: Prenatal Multivitamin with Calcium/Folic Acid/Iron Tab PO SCH (08:55)
[2019-04-12] MEDS: Docusate Sodium 100 MG Cap PO PRN ×2 (08:55→19:37)
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
--- NOTE | 2019-04-12 12:53 | DEL ---
DATE: 04/12/2019 PREOPERATIVE DIAGNOSES: 1. Intrauterine at 39 and 6/7 weeks by 26 and 1/7 weeks' ultrasound. 2. Active labor upon admission, being 6 to 7 cm, 100% effaced, 0 station. 3. Group B Streptococcus negative. 4. Hepatitis C antibody positive. 5. Positive UDS for THC at [facility] on 01/03/2019, negative upon admission. 6. History of LEEP. 7. Meconium-stained fluid. 8. -0-0-2. POSTOPERATIVE DIAGNOSES: 1. Intrauterine at 39 and 6/7 weeks by 26 and 1/7 weeks' ultrasound. 2. Active labor upon admission, being 6 to 7 cm, 100% effaced, 0 station. 3. Group B Streptococcus negative. 4. Hepatitis C antibody positive. 5. Positive UDS for THC at [facility] on 01/03/2019, negative upon admission. 6. History of LEEP. 7. Meconium-stained fluid. 8. G3, P2-0-0-2. 9. PRUDENCE presentation. 10.Nuchal cord x1, reduced bluntly at delivery. 11.Rapid spontaneous vaginal delivery. PROCEDURE PERFORMED: Spontaneous vaginal delivery. ANESTHESIA/ANALGESIA: The patient did receive 25 mcg of fentanyl in the 1st stage of labor. ESTIMATED BLOOD LOSS: 300 mL. FINDINGS: Female scores of 9 and 9, weight pending. Meconium-stained fluid noted. SUMMARY OF EVENTS: The patient is a 28-year-old, G3, P2-0-0-2 intrauterine at 39 and 6/7 weeks by 26 and 1/7 weeks' ultrasound, admitted in active labor with contractions and advanced cervical dilation. Approximately within an hour of presentation, the patient went from 6-7 cm to complete and delivered. She was subsequently admitted, IV was started. Fentanyl was called for and given. Labs were drawn. I was called to the room as she was nearing the 2nd stage of labor. I donned in sterile gown and gloves and evaluated the patient. She had an urge to push. She was found to be in the 2nd stage of labor, started pushing, and with 1 contraction, vertex was delivered in an PRUDENCE presentation with nuchal cord x1, reduced bluntly with somersault maneuver with delivery of the infant. Anterior and posterior shoulder as well as rest of the infant delivered without difficulty. Mouth and nares were suctioned. Cords were doubly clamped and cut. Infant was brought to team. Then, approximately 10 mL of cord blood was obtained for labs. Placenta then delivered with gentle cord traction and fundal massage within 5 minutes. Perineum, vagina, and perirectal areas were then examined with small abrasions noted periurethrally as well as around the 1st degree region, and these were nonbleeding, nonrepaired after discussion with the patient. Mother and infant are currently stable at the time of dictation. [facility] /[id number]
[2019-04-13] MEDS: Prenatal Multivitamin with Calcium/Folic Acid/Iron Tab PO SCH (09:15)
[2019-04-13] MEDS: Docusate Sodium 100 MG Cap PO PRN (09:15)
[2019-04-14] MEDS: Prenatal Multivitamin with Calcium/Folic Acid/Iron Tab PO SCH (08:35)
[2019-04-14] MEDS: Docusate Sodium 100 MG Cap PO PRN (08:35)
--- NOTE | 2019-04-14 12:55 | PN ---
DATE: 04/12/2019 day #1. SUBJECTIVE: The patient is tolerating p.o., ambulating, urinating, passing flatus. States her bleeding has decreased. Pain is under control. OBJECTIVE: Vital Signs: Temperature 98.3, heart rate 68, blood pressure 109/55, respiratory rate is 18. Lungs: Clear to auscultation bilaterally. Heart: S1, S2. Regular rate and rhythm. Genitourinary: Firm uterus around the umbilicus. No obvious calf pain. LABORATORY DATA: White cell count 9.5, hemoglobin 12.5, platelets 272. ASSESSMENT: day #1, status post spontaneous vaginal delivery. PLAN: We will continue to follow clinically and closely. She was notable for hep C antibody positive in the past. This has been discussed and we will be checking her baby in regard to this. Otherwise, we will continue to follow clinically and closely. Possible discharge tomorrow. [facility] /[id number]
--- NOTE | 2019-04-14 13:17 | DISCH ---
ADMITTING DIAGNOSES: 1. Intrauterine at 39 and 6/7 weeks by 26 and 1/7 weeks ultrasound. 2. Active labor upon admission, being 6 to 7 cm, 100% effaced, 0 station. 3. GBS negative. 4. Hepatitis C antibody positive. 5. Positive UDS for THC at [facility] on 01/03/2019, negative upon admission. 6. History of LEEP. 7. Meconium-stained fluid. 8. G3, P2-0-0-2. DISCHARGE DIAGNOSES: 1. Intrauterine at 39 and 6/7 weeks by 26 and 1/7 weeks ultrasound, delivered in a PRUDENCE presentation. 2. Active labor upon admission, being 6 to 7 cm, 100% effaced, 0 station. 3. GBS negative. 4. Hepatitis C antibody positive. 5. Positive UDS for THC at [facility] on 01/03/2019, negative upon admission. 6. History of LEEP. 7. Meconium-stained fluid. 8. Nuchal cord x1, reduced bluntly with delivery. 9. Rapid spontaneous vaginal delivery. PROCEDURE PERFORMED: Spontaneous vaginal delivery per Dr. Petty. HISTORY OF PRESENT ILLNESS: Please see H and P. SUMMARY OF HOSPITAL COURSE: The patient was admitted on the above date with above diagnoses, was in active labor, with advanced cervical dilation, delivered very quickly after presentation. Please see delivery note for further details. Postoperative day#1, please see progress notes. Postoperative day #2, date of discharge, the patient was tolerating p.o., ambulating, urinating, passing flatus, and requesting discharge. PHYSICAL EXAMINATION: Vital Signs: Last set of vitals; temperature 97.7, heart rate 73, blood pressure 118/65, respiratory rate 16. Lungs: Clear to auscultation bilaterally . Heart: S1-S2. Regular rate and rhythm. PELVIC: Firm uterus -2 below umbilicus. EXTREMITIES: No peripheral edema. No calf pain. LABORATORY DATA: During this hospitalization, white cell count 9.5 on 04/13/2019, hemoglobin 12.5, compared to predelivery hemoglobin of 14.7. UDS was negative. CONDITION ON DISCHARGE COMPARED TO CONDITION ON ADMISSION: Improved. INSTRUCTIONS: 1. Diet as tolerated. 2. Activity: No lifting more than 20 pounds. No sit-ups or straining and pelvic rest for the next 6 weeks with immediate return to fertility discussed with the patient. 3. Reasons to go to the emergency room were discussed with the patient in detail including, but not limited to, temperature greater than 100.4, foul- smelling discharge, red hot tender breasts, or increased vaginal bleeding. DISCHARGE MEDICATIONS: 1. [id number] Tylenol or ibuprofen for pain. 2. vitamins while . FOLLOWUP: Follow up in 6 weeks' . I did discuss with the patient in the interim reasons to return or go to the emergency room in regard to as well as the importance of followup and ramifications of not doing so. [facility] /[id number]
== END 2019-04-14 11:00 | disposition home or self-care (01) | DRG 807 ==
LOC: DL.OBCHECK 02:52 → DL.OB 03:13 → OBSVTOIN 03:41 → DL.OB 03:41 → DL.MS 20:58
PROVIDERS: ADMIT Family Medicine; ATTEND Family Medicine
PROC: 10E0XZZ Delivery of Products of Conception, External Approach (ICD-10-PCS; principal; 2019-04-12)
DX: O80 Encounter for full-term uncomplicated delivery (principal); O77.0 Labor and delivery complicated by meconium in amniotic fluid; O99.834 Other infection carrier state complicating childbirth; Z37.0 Single live birth; Z3A.39 39 weeks gestation of pregnancy; O69.81X0 Labor and delivery complicated by cord around neck, without compression, not applicable or unspecified
CPT/HCPCS: 36415; 59400; 59409; 80305; 85027; J3010; J7120; A9270-GY; J2590

== ENCOUNTER 2024-04-07 00:49 | Emergency (ER) | payer SELFPAY ==
[2024-04-07] MEDS: LORazepam 1 MG Tab PO ONE (01:35)
[2024-04-07 01:38] LABS: BASOPHILS PERCENT AUTO 0.5 % (0.0-1.0); EOSINOPHILS PERCENT AUTO 3.9 % (1.0-3.0); HEMATOCRIT 41.6 % (37.0-47.0); HEMOGLOBIN 14.1 g/dL (12.0-16.0); LYMPHOCYTES PERCENT AUTO 38.9 % (20.5-50.1); MEAN CORPUSCULAR HEMOGLOBIN 30.5 pg (27.0-34.0); MEAN CORPUSCULAR HGB CONC 33.9 g/dL (33.0-35.0); MONOCYTES PERCENT AUTO 8.7 % (2-8); PLATELET COUNT,PLT 278 10^3/uL (150-450); RED BLOOD CELL COUNT 4.62 10^6/uL (4.2-5.4); WHITE BLOOD CELL COUNT,WBC 6.4 10^3/uL (5.0-10.0)
[2024-04-07 01:44] LABS: APPEARANCE,URINE CLEAR (CLEAR); BILIRUBIN,URINE NEGATIVE (NEGATIVE); GLUCOSE,URINE NEGATIVE (NEGATIVE); KETONES,URINE NEGATIVE (NEGATIVE); LEUKOCYTE ESTERASE,URINE NEGATIVE (NEGATIVE); NITRITE,URINE NEGATIVE (NEGATIVE); OCCULT BLOOD,URINE NEGATIVE (NEGATIVE); PROTEIN,URINE NEGATIVE (NEGATIVE); UROBILINOGEN,URINE 0.2 mg/dL (0.2-1.0)
[2024-04-07 01:45] LABS: COLOR,URINE LIGHT YELLOW (YELLOW)
[2024-04-07 01:46] LABS: AMPHETAMINES,URINE NEGATIVE (NEGATIVE); BARBITURATES,URINE NEGATIVE (NEGATIVE); BENZODIAZEPINE,URINE NEGATIVE (NEGATIVE); MDMA (ECSTASY), URINE NEGATIVE (NEGATIVE); METHADONE,URINE NEGATIVE (NEGATIVE); METHAMPHETAMINES,URINE NEGATIVE (NEGATIVE); OPIATES,URINE NEGATIVE (NEGATIVE); OXYCODONE,URINE NEGATIVE (NEGATIVE); PHENCYCLIDINE,URINE NEGATIVE (NEGATIVE); TCA,URINE NEGATIVE (NEGATIVE)
[2024-04-07 02:08] LABS: A/G RATIO 1.1; ALANINE AMINOTRANSFERASE,ALT 46 U/L (14-59); ALBUMIN 4.1 g/dL (3.4-5.0); ALKALINE PHOSPHATASE 74 U/L (46-116); ANION GAP 15.3 mEq/L (7-13); ASPARTATE AMNIOTRANSFERASE,AST 23 U/L (15-37); BILIRUBIN TOTAL 0.5 mg/dL (0.2-1.0); BLOOD UREA NITROGEN,BUN 11 mg/dL (7-18); CALCIUM 8.4 mg/dL (8.5-10.1); CARBON DIOXIDE,CO2 26 mmol/L (21-32); CHLORIDE,CL 102 mmol/L (98-107); CREATININE 0.92 mg/dL (0.55-1.02); GLUCOSE RANDOM 126 mg/dL (70-99); POTASSIUM,K 3.3 mmol/L (3.5-5.1); PROTEIN TOTAL,TP 7.8 g/dL (6.4-8.2); SODIUM,NA 140 mmol/L (136-145)
[2024-04-07 02:12] LABS: ESTIMATED GFR 84 mL/min (>=60)
[2024-04-07 02:38] LABS: CREATINE KINASE,CK 101 U/L (16-191)
== END 2024-04-07 07:21 | disposition home or self-care (01) ==
LOC: DL.ED 00:49
DX: M94.0 Chondrocostal junction syndrome [Tietze] (principal); K58.1 Irritable bowel syndrome with constipation; R06.4 Hyperventilation; F17.210 Nicotine dependence, cigarettes, uncomplicated
CPT/HCPCS: 36415; 71045; 74018; 80053; 80305-QW; 81003; 81025; 82550; 84484; 85025; 85379; 99285; A9270-GY